=== PATIENT | female | born 1950 | race Asian ===

== ENCOUNTER 2025-01-04 21:14 | Emergency (ER) | payer MEDICARE ==
[~2025-01-04] VITALS: Ht 154.9 cm; Wt 49.3 kg
[2025-01-04 21:18] VITALS: O2SAT 100
[2025-01-04 21:19] VITALS: BP 152/76; PULSE 89; RESP 14; TEMP 36.9; O2SAT 97
[2025-01-04] MEDS: LIDOCAINE 5% PATCH TOP SCH (22:11)
[2025-01-04] MEDS: ACETAMINOPHEN 500MG TABLET PO ONE (22:11)
[2025-01-04] MEDS ORDERED: LIDO-53 TP (23:21)
[2025-01-04] MEDS ORDERED: ACET-2708 MT (23:21)
[2025-01-04] MEDS ORDERED: CYCL5TAB3 MT (23:21)
== END 2025-01-04 23:40 | disposition home or self-care (01) ==
LOC: ER 21:14
DX: M51.360 Other intervertebral disc degeneration, lumbar region with discogenic back pain only (principal); M84.48XA Pathological fracture, other site, initial encounter for fracture; Z79.899 Other long term (current) drug therapy
CPT/HCPCS: 72131; 99284